=== PATIENT | male | born 1950 | race Caucasian/White ===

== ENCOUNTER 2022-07-19 12:11 | Inpatient (IN) | payer MEDICARE, OTHER ==
[2022-07-19] MEDS ORDERED: ASPIRIN 81 MG PO STA (12:15)
[2022-07-19] MEDS ORDERED: ATORVASTATIN 80 MG TAB PO STA (12:18)
--- NOTE | 2022-07-19 12:19 | ED ---
General Adult HPI - General Stated complaint: Stemi Time Seen by Provider: 07/19/22 12:14 Source: patient, EMS, RN notes reviewed Mode of arrival: EMS Limitations: no limitations - History of Present Illness Initial comments: Patient is a pleasant 72-year-old male presenting to the emergency department with concerns with syncopal episode. Patient became unresponsive. Patient admits to having some belching earlier. Patient feels sweaty at this time. EMS has concern for ST elevation on EKG. Patient denies chest discomfort. No critical history. No history of similar symptoms previously. No vomiting. No dyspnea. Review of Systems ROS Statement: Those systems with pertinent positive or pertinent negative responses have been documented in the HPI. ROS Other: All systems not noted in ROS Statement are negative. Constitutional: Denies: fever Eyes: Denies: eye pain ENT: Denies: ear pain Respiratory: Denies: cough, dyspnea Cardiovascular: Denies: chest pain Endocrine: Denies: fatigue Gastrointestinal: Denies: abdominal pain Genitourinary: Denies: dysuria Musculoskeletal: Denies: back pain Skin: Denies: rash Neurological: Denies: weakness General Exam Limitations: no limitations General appearance: alert, in no apparent distress Head exam: Present: normocephalic Eye exam: Present: normal appearance, PERRL, EOMI ENT exam: Present: normal oropharynx Neck exam: Present: normal inspection Respiratory exam: Present: normal lung sounds bilaterally. Absent: chest wall tenderness Cardiovascular Exam: Present: regular rate, normal rhythm Expanded Peripheral pulses: 2+: Radial (R), Radial (L), Posterior Tibialis (R), Posterior Tibialis (L) GI/Abdominal exam: Present: soft. Absent: tenderness Extremities exam: Present: normal inspection. Absent: pedal edema, calf tenderness Neurological exam: Present: alert, oriented X3, CN II-XII intact. Absent: motor sensory deficit Expanded Neurological exam: Present: protecting the airway Patient oriented to: Present: person, place, time Speech: Present: fluid speech Cranial nerves: EOM's Intact: Normal Sensory exam: Upper Extremity Light Touch: Normal, Lower Extremity Light Touch: Normal Motor strength exam: RUE: 5, LUE: 5, RLE: 5, LLE: 5 Eye Response: (4) open spontaneously Motor Response: (6) obeys commands Verbal Response: (5) oriented Psychiatric exam: Present: normal affect, normal mood Skin exam: Present: normal color Course Vital Signs 07/19/22 12:13 Temperature 97.9 F Pulse Rate 93 Respiratory 20 Rate Blood Pressure 114/84 O2 Sat by Pulse 98 Oximetry - Reevaluation(s) Reevaluation #1: 07/19/22 12:17 Cardiology was contacted prior to patient arrival and has arrived and is evaluating the patient. 07/19/22 12:24 EKG by EMS shows inferior ST elevation with reciprocal changes anterior. EKG done apartment was taken by Dr. Alba. Medical Decision Making - Medical Decision Making Patient is going to the Technical Advisor. Admitting hospital physician has been paged. Case was discussed with Dr. oro, who will admit. Disposition Clinical Impression: Syncope, STEMI (ST elevation myocardial infarction) Disposition: ADMITTED IP TO THIS HOSP Is patient prescribed a controlled substance at d/c from ED?: No Referrals: None,Stated [REFERRING] - 1-2 days Time of Disposition: 12:21
[2022-07-19] MEDS ORDERED: HEPARIN SODIUM 1,000 UN/ML (10ML VL) IVP ONE (12:20)
[2022-07-19] MEDS ORDERED: NITROGLYCERIN SL TABS 0.4 MG TAB SUBLINGUAL PRN ×2 (12:22→14:44)
[2022-07-19] MEDS ORDERED: HEPARIN SODIUM 1,000 UN/ML (10ML VL) ONE (12:34)
[2022-07-19] MEDS ORDERED: fentaNYL (PF) 50 MCG/ML 2 ML AMP ONE (12:34)
[2022-07-19] MEDS ORDERED: LIDOCAINE 1% INJ 10MG/ML (30 ML VIAL-PF) SQ ONE (12:35)
[2022-07-19] MEDS ORDERED: fentaNYL (PF) 50 MCG/ML 2 ML AMP IV ONE (12:35)
[2022-07-19] MEDS ORDERED: IV FLUID CONTINUATION 1,000 ML IV ONE (12:35)
--- NOTE | 2022-07-19 12:36 | P.CRDCN ---
History of Present Illness History of present illness: HISTORY OF PRESENTING ILLNESS This is a pleasant 72-year-old male past medical history significant for chronic nicotine dependence, hypertension. He does not follow with a script editor.. We have been asked to see in consultation for STEMI. Patient presents to the ER via EMS after a syncopal episode. Patient was sitting down with family and had acute onset of syncope and had brief episode of loss of consciousness. EMS was called. Patient was diaphoretic. EKG was preformed and patient with ST elevations noted on inferior leads. Patient is seen and examined in the emergency department, he is alert, oriented x 3. Vital signs are stable. He denies any chest pain or shortness of breath. He denies any history of CAD, NH, Stroke or diabetes. He does have a history of hypertension and take amlodipine. EKG revealed sinus rhythm with ST elevation noted in inferior leads. Patient given 325mg aspirin. 80mg atorvastatin and 5,000units of IV heparin ordered. REVIEW OF SYSTEMS At the time of my exam: CONSTITUTIONAL: Denies fever or chills. CARDIOVASCULAR: +syncopal episode Denies chest pain, shortness of breath, orthopnea, PND or palpitations. RESPIRATORY: Denies cough. GASTROINTESTINAL: Denies abdominal pain, diarrhea, constipation, nausea or vomiting. MUSCULOSKELETAL: Denies myalgias. NEUROLOGIC: Denies numbness, tingling, headacbe or weakness. ENDOCRINE: Denies fatigue, weight change, polydipsia or polyurina. GENITOURINARY: Denies burning, hematuria or urgency with micturation. HEMATOLOGIC: Denies history of anemia or bleeding. PHYSICAL EXAMINATION Blood pressure 114/84, heart rate 93, afebrile, oxygen saturation is 98% on 2 L nasal cannula CONSTITUTIONAL: No apparent distress. HEENT: Head is normocephalic. Sclerae anicteric. Mucous membranes of the mouth are moist. No JVD. CHEST EXAMINATION: Lungs are clear to auscultation. HEART EXAMINATION: Regular rate and rhythm. S1, S2 heard. ABDOMEN: Soft, nontender. EXTREMITIES: no lower extremity edema and no calf tenderness. NEUROLOGIC EXAMINATION: Patient is awake, alert and oriented x3. ASSESSMENT Inferior STEMI Syncopal episode Chronic tobacco use History of Hypertension PLAN Patient taken to the blood bank laboratory technician for immediate cardiac catheterization Will obtain 2D echocardiogram and doppler study to assess cardiac structure and function. Troponin, CBC, BMP labs pending Monitor renal function Further recommendations based on above findings and clinical course. Nurse practitioner note has been reviewed by physician. Signing provider agrees with the documented findings, assessment, and plan of care. Past Medical History Past Medical History: Unable to Obtain Past Surgical History: Unable to Obtain Smoking Status: Never smoker Past Alcohol Use History: Unable to Obtain Past Drug Use History: Unable to Obtain Physical Exam Vitals: Vital Signs Temp Pulse Resp BP Pulse Ox 07/19/22 12:13 97.9 F 93 20 114/84 98 Intake and Output 07/18/22 07/19/22 07/19/22 22:59 06:59 14:59 Other: Weight 72.575 kg Results Current Medications Generic Name Dose Route Start Last Admin Trade Name Freq PRN Reason Stop Dose Admin Aspirin 325 mg 07/20/22 09:00 Aspirin 325 Mg Tab PO DAILY TRACY Nitroglycerin 0.4 mg 07/19/22 12:22 Nitroglycerin Sl Tabs 0.4 Mg Tab SUBLINGUAL Q5M PRN Chest Pain Intake and Output 07/18/22 07/19/22 07/19/22 22:59 06:59 14:59 Other: Weight 72.575 kg Patient Weight 07/20/22 06:59 Weight 72.575 kg
[2022-07-19] MEDS ORDERED: VERAPAMIL SYRINGE (5 MG/10 ML) INTRAARTER ONE (12:38)
[2022-07-19] MEDS ORDERED: TICAGRELOR 90 MG TAB ONE (12:42)
[2022-07-19] MEDS ORDERED: TICAGRELOR 90 MG TAB PO ONE (12:43)
[2022-07-19] MEDS: HEPARIN SODIUM 1,000 UN/ML (10ML VL) IV ONE ×4 (12:43→14:12)
[2022-07-19] MEDS: MIDAZOLAM 2 MG/2 ML VIAL IV ONE ×2 (12:45→12:52)
[2022-07-19] MEDS ORDERED: SODIUM CHLORIDE 0.9% 1,000 ML IV ONE (13:33)
[2022-07-19] MEDS ORDERED: IOPAMIDOL-370 125ML BTL INJ ONE (13:33)
[2022-07-19] MEDS ORDERED: TIROFIBAN 12.5MG-250ML NS 250 ML IV ONE (14:00)
[2022-07-19] MEDS ORDERED: IOPAMIDOL-370 100ML BTL INJ ONE ×2 (14:14→14:37)
[2022-07-19] MEDS ORDERED: ATROPINE SULFATE 0.1 MG/ML 10ML SYRINGE IV PRN (14:44)
[2022-07-19] MEDS ORDERED: MAG HYDROX/AL HYDROX/SIMETH 30 ML CUP PO PRN (14:44)
[2022-07-19] MEDS ORDERED: RX INFO: IV CONTRAST WAS GIVEN 1 EACH MISC MISCELLANE PRN (14:44)
[2022-07-19] MEDS ORDERED: ZOLPIDEM 5 MG TAB PO PRN (14:44)
[2022-07-19] MEDS ORDERED: SODIUM CHLORIDE 0.9% 1,000 ML in EMPTY BAG 1 BAG IV SCH (14:45)
[2022-07-19 14:46] LABS: Basophils # (A) 0.1 k/uL (0-0.2); Basophils % (A) 0 %; Eosinophils # (A) 0.1 k/uL (0-0.7); Eosinophils % (A) 1 %; HCT 41.9 % (39.0-53.0); HGB 14.5 gm/dL (13.0-17.5); Lymphocytes # (A) 1.2 k/uL (1.0-4.8); Lymphocytes % (A) 9 %; MCH 33.2 pg (25.0-35.0); MCHC 34.5 g/dL (31.0-37.0); MCV 96.2 fL (80.0-100.0); Mean Platelet Volume 6.7; Monocytes # (A) 0.4 k/uL (0-1.0); Monocytes % (A) 3 %; Neutrophils # (A) 12.6 k/uL (1.3-7.7); Neutrophils % (A) 87 %; Platelet Count 341 k/uL (150-450); RBC 4.36 m/uL (4.30-5.90); RDW 13.4 % (11.5-15.5); WBC 14.5 k/uL (3.8-10.6)
[2022-07-19] MEDS ORDERED: TIROFIBAN 12.5MG-250ML NS 250 ML IV SCH (15:00)
[2022-07-19 15:17] LABS: Glucose,Whole Blood 145 mg/dL (70-110)
[2022-07-19 15:27] LABS: INR 1.1 (<1.2); Prothrombin Time 11.9 sec (9.0-12.0)
[2022-07-19 15:34] LABS: Partial Thromboplastin Time >200.0 sec (22.0-30.0)
[2022-07-19] MEDS ORDERED: LORazepam 1 MG/0.5 ML VIAL IV STA (16:18)
[2022-07-19] MEDS ORDERED: THIAMINE 100 MG/ML 2 ML VIAL IM STA (16:20)
[2022-07-19] MEDS ORDERED: LORazepam 1 MG/0.5 ML VIAL IV PRN ×3 (16:20)
[2022-07-19 16:22] LABS: Basophils % (A) 0 %; Eosinophils % (A) 0 %; HCT 46.5 % (39.0-53.0); HGB 15.3 gm/dL (13.0-17.5); Lymphocytes # (A) 1.2 k/uL (1.0-4.8); Lymphocytes % (A) 10 %; MCH 32.3 pg (25.0-35.0); MCHC 32.9 g/dL (31.0-37.0); MCV 98.1 fL (80.0-100.0); Monocytes # (A) 0.3 k/uL (0-1.0); Monocytes % (A) 2 %; Neutrophils # (A) 10.6 k/uL (1.3-7.7); Neutrophils % (A) 87 %; Platelet Count 380 k/uL (150-450); RBC 4.74 m/uL (4.30-5.90); RDW 13.4 % (11.5-15.5); WBC 12.2 k/uL (3.8-10.6)
[2022-07-19 16:31] LABS: ALT 11 U/L (4-49); AST 21 U/L (17-59); African American GFR (CKD) >90 (>60 ml/min/1.73 sqM); Albumin 3.7 g/dL (3.5-5.0); Alkaline Phosphatase 89 U/L (38-126); Anion Gap 11 mmol/L; Blood Urea Nitrogen 10 mg/dL (9-20); Calcium 8.2 mg/dL (8.4-10.2); Carbon Dioxide 21 mmol/L (22-30); Chloride 96 mmol/L (98-107); Glucose 115 mg/dL (74-99); Magnesium 1.8 mg/dL (1.6-2.3); Non-African American GFR(CKD) >90 (>60 ml/min/1.73 sqM); Potassium 3.7 mmol/L (3.5-5.1); Sodium 128 mmol/L (137-145); Total Bilirubin 0.5 mg/dL (0.2-1.3); Total Protein 6.3 g/dL (6.3-8.2)
[2022-07-19] MEDS: NICOTINE 21MG/24HR PATCH TRANSDERM SCH (16:45)
--- NOTE | 2022-07-19 18:01 | P.CARDCATH ---
Date of Procedure: 07/19/22 Description of Procedure: Cardiac Catheterization: The patient is a 72-year-old male with a known history of hypertension, chronic tobacco use and a family history of premature CAD who presented with an acute inferior wall myocardial infarction, he was evaluated by Dr. Alba. Recommendations were made regarding cardiac catheterization, the risks and the complications were discussed with the patient who is in full understanding and agreement. Procedure Description: Patient was brought to labor mediator in fasting semi-sedated state after receiving Fentanyl and Benadryl achieiving moderate conscious sedated state. Using Xylocaine Anesthesia and Seldinger technique, a 6-Martiniquais sheath was introduced in the right radial artery . Subsequently, selective right coronary angiography was performed using a 6- Martiniquais 4 bend Krystyna guiding catheter. Because of poor backup and the inability to advance the wire through the acute occlusion of the mid distal RCA, the guiding catheter was removed and a 6-Martiniquais 0.75 AL guiding catheter was introduced. Subsequently a 0.014 BMW J wire with a fine cross microcatheter were introduced into system and the wire was positioned in the distal vessel. A 2.5 x 12 mm Treck was advanced and inflation at 8 ashley were done not cross the total occlusion at that time the balloon was removed and a 1.5X8 mm mini Treck was advanced and multiple inflation at a maximum of 10 ashley were done. After removing the balloon a 2.5 x 12 mm NC Treck was advanced and multiple inflation in the mid and distal segment at a maximum of 10 ashley were done. After removing the 6-Martiniquais guide liner was advanced and a 2.5 x 23 mm Xience raisa point stent was deployed at 16 ashley, after removing the balloon another 2.5 at 23 mm Xience raisa point stent was deployed proximal to the first one and dilated at 16 ashley. Following that a 2.75 x 15 mm NC Treck balloon was advanced and multiple inflation at a maximum of 12 ashley were done in the stents. Subsequently a 3.0 x 15 mm Xience raisa point proximally and dilated at 16 ashley and another 3.0 x 8 mm raisa point stent was positioned proximal to the first one right after the ostium and dilated at 16 ashley. After appropriate wait the wire was withdrawn back and catheter at evidence of haziness in the mid segment was noted. The wire was reintroduced and a 2.0 x 12 mm Mini Treck was advanced and inflations were done at 10 ashley subsequently 3.0 x 12 and a 3.0 x 8 mm NC Treck were advanced and inflation in the distal and mid stent were done at 12 ashley. After removing the balloon a 3.0 x 8 mm Xience raisa point stent was positioned in the overlapped segment and dilated at 16 ashley after removing the balloon and appropriate wait the wire was removed and images were obtained that revealed stable successful stenting. At that time a 3.5, 5 bend diagnostic Krystyna catheter was advanced and images of the left system were performed. Multiple views of the coronary artery including hemiaxial views were obtained. The right Krystyna guiding catheter catheter was used to cross the aortic valve and LVEDP was calculated. Following that, catheter and sheath were removed. Hemostasis was obtained with deployment of TR band . There was no immediate complication. Patient was returned to room in stable condition. Of note, the patient received a total of 9500 units of intravenous heparin as well as intra-arterial verapamil. He received a loading dose of oral Brilinta and was started on Aggrastat at the end of the procedure. His chest discomfort and EKG changes resolved at the time of recanalization of the vessel. There was no immediate complications. Findings: Fluoroscopy there is severe calcification involving the RCA. Left main: This is a short sized vessel, bifurcating into LAD and left circumflex, left main has no high-grade stenosis LAD: This is a large size vessel, reaching to the apex, giving rise to a large diagonal branch. The diagonal branch has 30-40% plaque the rest of the vessel has no high-grade stenosis Left circumflex: This is a nondominant vessel, giving rise to a large obtuse marginal branch that has no evidence of high-grade stenosis RCA: In this vessel is heavily calcified has a 50% plaque proximally the midsegment is diffusely diseased, the distal segment is totally occluded with no significant antegrade flow Left Ventriculogram: Not performed Hemodynamics: There was no gradient across the aortic valve, LVEDP was 12-16 mmHg Conclusion: 1. Heavily calcified RCA with total occlusion of the mid segment 2. Mild disease in the first diagonal branch 3. Successful stenting of the proximal and distal RCA with reduction of the stenosis in the distal segment from 100 % to 0% with mild haziness, suggestive of intracoronary thrombus Recommendations: I have recommended to continue on aspirin and Brilinta for at least one year in addition to aggressive coronary risks modifications. He will be continued on Aggrastat for 12 hours. The findings and the recommendations were discussed with the patient and the family and they were in full understanding and agreement. Duration of sedation is 124 minutes.
[2022-07-19] MEDS: MULTIVITAMINS, THERA 1 EACH TAB PO SCH (18:27)
[2022-07-19] MEDS: TICAGRELOR 90 MG TAB PO SCH (20:56)
[2022-07-19] MEDS: METOPROLOL TARTRATE 25 MG TAB PO SCH (20:56)
[2022-07-19] MEDS: ATORVASTATIN 80 MG TAB PO SCH (20:56)
[2022-07-20 01:03] LABS: Chol/HDL Ratio 2.63 Ratio; LDL Cholesterol,Calculated 99.2 mg/dL (0.0-131.0); VLDL Calculation 11.24 mg/dL (5.00-40.00)
--- NOTE | 2022-07-20 02:48 | HP ---
HISTORY AND PHYSICAL CHIEF COMPLAINT: Syncope and inferior wall myocardial infarction. HISTORY OF PRESENT ILLNESS: A 72-year-old gentleman with a past medical history of no significant medical issues, was admitted with syncope. The patient was noted to have inferior wall myocardial infarction. The patient had cardiac catheterization and stenting. Also, the patient wanted to leave the hospital at this time. The patient has a history of EtOH also. There is no history of fever, rigors, or chills. PAST MEDICAL HISTORY: No history of any cardiac, or respiratory illnesses. MEDICATIONS: Norvasc. ALLERGIES: None. FAMILY HISTORY: No history of heart disease or strokes in the family. SOCIAL HISTORY: History of smoking. History of alcohol. REVIEW OF SYSTEMS: A 14-point review of systems is negative except as mentioned earlier. PHYSICAL EXAMINATION: VITAL SIGNS: Pulse is 70, blood pressure 130/72, respirations 17. HEENT: Conjunctivae normal. NECK: No JVD. CARDIOVASCULAR: S1, S2 muffled. RESPIRATION: Breath sounds diminished at the bases. A few scattered rhonchi and crackles. ABDOMEN: Soft, nontender. LEGS: No edema. NERVOUS SYSTEM: No focal deficits. SKIN: No ulcer, rash, bleeding. JOINTS: No active deforming arthropathy. LABS: Reviewed. WBC 12.3. EKG reviewed personally. ASSESSMENT: 1. Acute inferior myocardial wall infarction, status post cardiac catheterization and stenting. 2. ETOH. 3. History of nicotine dependence. 4. Hyponatremia. 5. Increased WBC. 6. Hypertension. RECOMMENDATIONS AND DISCUSSION: This is a 72-year-old gentleman, who presented with multiple complex medical issues. We will monitor the patient closely. Dual antiplatelet and beta blockers. We will continue to monitor. Monitor blood pressure closely. CIWA protocol. Habitrol patch. Have Ativan p.r.n. Prognosis guarded because of multiple complex medical issues. Discussed with the family at length and the patient at length for the need to stay in the hospital. The patient is being monitored in ICU. Discussed with staff. Further recommendations to follow. See orders for further details. MMODL / IJN: [id number] /
[2022-07-20] MEDS: THIAMINE 100 MG TAB PO SCH ×2 (06:32→18:32)
[2022-07-20 07:27] LABS: Basophils # (A) 0.1 k/uL (0-0.2); Basophils % (A) 1 %; Eosinophils # (A) 0.2 k/uL (0-0.7); Eosinophils % (A) 2 %; HCT 42.4 % (39.0-53.0); HGB 13.9 gm/dL (13.0-17.5); Lymphocytes # (A) 1.6 k/uL (1.0-4.8); Lymphocytes % (A) 13 %; MCH 32.1 pg (25.0-35.0); MCHC 32.7 g/dL (31.0-37.0); MCV 98.2 fL (80.0-100.0); Mean Platelet Volume 7.3; Monocytes # (A) 0.8 k/uL (0-1.0); Monocytes % (A) 6 %; Neutrophils # (A) 9.5 k/uL (1.3-7.7); Neutrophils % (A) 77 %; Platelet Count 344 k/uL (150-450); RBC 4.32 m/uL (4.30-5.90); RDW 13.1 % (11.5-15.5); WBC 12.3 k/uL (3.8-10.6)
[2022-07-20 07:41] LABS: African American GFR (CKD) >90 (>60 ml/min/1.73 sqM); Anion Gap 10 mmol/L; Blood Urea Nitrogen 5 mg/dL (9-20); Calcium 8.5 mg/dL (8.4-10.2); Carbon Dioxide 22 mmol/L (22-30); Chloride 98 mmol/L (98-107); Glucose 95 mg/dL (74-99); Non-African American GFR(CKD) >90 (>60 ml/min/1.73 sqM); Potassium 3.8 mmol/L (3.5-5.1); Sodium 130 mmol/L (137-145)
[2022-07-20] MEDS ORDERED: ASPIRIN 325 MG TAB PO SCH (09:00)
[2022-07-20] MEDS: TICAGRELOR 90 MG TAB PO SCH ×2 (09:14→21:05)
[2022-07-20] MEDS: ASPIRIN 81 MG PO SCH (09:14)
[2022-07-20] MEDS: MULTIVITAMINS, THERA 1 EACH TAB PO SCH (09:15)
[2022-07-20] MEDS: NICOTINE 21MG/24HR PATCH TRANSDERM SCH (09:16)
[2022-07-20] MEDS: METOPROLOL TARTRATE 25 MG TAB PO SCH (09:16)
--- NOTE | 2022-07-20 09:29 | P.PN ---
Subjective Progress Note Date: 07/20/22 The patient is a 72-year-old male with past medical history of hypertension, who presented to the hospital after experiencing an acute onset of feeling unwell. The patient states he felt generalized acute onset of malaise with nausea and lightheadedness. Initial EKG showed inferior wall ST elevation. He subsequently went to the pathology laboratory aide, where Dr. Melo found a heavily calcified RCA with total occlusion in the mid segment. 3 stents were placed. The patient was also found to have 30-40% in the diagonal branch of the LAD. Left circumflex was free of disease. The patient was interviewed and examined lying comfortably in bed. He states he did well overnight. No chest pain or chest pressure. No difficulty breathing. He is yet to get up and ambulate around the unit. GENERAL: Well-appearing, well-nourished and in no acute distress. NECK: Supple without JVD or thyromegaly. LUNGS: Breath sounds clear to auscultation bilaterally. Respiration equal and unlabored. No wheezes, rales or rhonchi. HEART: Regular rate and rhythm without murmurs, rubs or gallops. S1 and S2 heard. EXTREMITIES: Normal range of motion, no edema. No clubbing or cyanosis. Peripheral pulses intact. Right radial site is +2 pulse VITALS: Blood pressure 131/80, pulse 75, respiratory rate 16, SpO2 95% on 2 L nasal cannula TELEMETRY: Sinus rhythm overnight LABS: WBC 12.3, hemoglobin 13.9, hematocrit 42.4, platelet 344, sodium 1:30, potassium 3.8, BUN 5, creatinine 0.50, triglycerides 56, LDL 99, HDL 67 IMPRESSION: Inferior wall ST elevated myocardial infarction Status post stenting of the RCA Current smoker History of hypertension PLAN: Awaiting echocardiogram results Continue dual antiplatelet therapy and beta ehsan Start low-dose losartan for hypertension Further recommendations to be based on clinical course I am dictating on behalf of Dr Paulie Alba's history/physical and assessment/plan. Objective - Vital Signs Vital signs: Vital Signs Temp 98.0 F 07/20/22 04:00 Pulse 75 07/20/22 09:00 Resp 30 H 07/20/22 09:00 BP 131/80 07/20/22 09:00 Pulse Ox 95 07/20/22 09:00 FiO2 2 07/19/22 23:30 Intake & Output 07/19/22 07/20/22 07/20/22 18:59 06:59 18:59 Intake Total 2042 916 219 Output Total 750 3075 450 Balance 1292 -2159 -231 Weight 72.575 kg 67.5 kg Intake: IV 1450 903 219 Sodium Chloride 0.9% 1, 400 903 219 000 ml In Empty Bag 1 bag @ 1 ML/KG/HR 72.575 mls/ hr IV .[id number] TRACY Rx#: [id number] Intake, IV Titration 52 13 Amount Tirofiban 12.5MG-250Ml Ns 52 13 250 ml @ 0.15 MCG/KG/MIN 13.064 mls/hr IV .[id number] TRACY Rx#:[id number] Oral 540 Output: Urine 750 3075 450 Other: Voiding Method Urinal - Labs CBC & Chem 7: 07/20/22 06:27 07/20/22 06:27 Labs: Abnormal Lab Results - Last 24 Hours (Table) 07/19/22 07/19/22 07/19/22 Range/Units 14:30 14:30 14:30 WBC 14.5 H (3.8-10.6) k/uL Neutrophils # 12.6 H (1.3-7.7) k/uL APTT >200.0 H* (22.0-30.0) sec Sodium 128 L (137-145) mmol/L Chloride 96 L (98-107) mmol/L Carbon Dioxide 21 L (22-30) mmol/L BUN (9-20) mg/dL Creatinine 0.56 L (0.66-1.25) mg/dL Glucose 115 H (74-99) mg/dL POC Glucose (mg/dL) (70-110) mg/dL Calcium 8.2 L (8.4-10.2) mg/dL Troponin I (0.000-0.034) ng/mL HDL Cholesterol (40.00-60.00) mg/dL 07/19/22 07/19/22 07/19/22 Range/Units 14:30 15:15 15:34 WBC (3.8-10.6) k/uL Neutrophils # (1.3-7.7) k/uL APTT (22.0-30.0) sec Sodium (137-145) mmol/L Chloride (98-107) mmol/L Carbon Dioxide (22-30) mmol/L BUN (9-20) mg/dL Creatinine (0.66-1.25) mg/dL Glucose (74-99) mg/dL POC Glucose (mg/dL) 145 H (70-110) mg/dL Calcium (8.4-10.2) mg/dL Troponin I 0.141 H* 0.404 H* (0.000-0.034) ng/mL HDL Cholesterol (40.00-60.00) mg/dL 07/19/22 07/19/22 07/19/22 Range/Units 15:34 15:34 15:34 WBC 12.2 H (3.8-10.6) k/uL Neutrophils # 10.6 H (1.3-7.7) k/uL APTT 151.3 H* (22.0-30.0) sec Sodium (137-145) mmol/L Chloride (98-107) mmol/L Carbon Dioxide (22-30) mmol/L BUN (9-20) mg/dL Creatinine (0.66-1.25) mg/dL Glucose (74-99) mg/dL POC Glucose (mg/dL) (70-110) mg/dL Calcium (8.4-10.2) mg/dL Troponin I (0.000-0.034) ng/mL HDL Cholesterol 67.60 H (40.00-60.00) mg/dL 07/19/22 07/20/22 07/20/22 Range/Units 20:48 02:06 06:27 WBC (3.8-10.6) k/uL Neutrophils # (1.3-7.7) k/uL APTT (22.0-30.0) sec Sodium (137-145) mmol/L Chloride (98-107) mmol/L Carbon Dioxide (22-30) mmol/L BUN (9-20) mg/dL Creatinine (0.66-1.25) mg/dL Glucose (74-99) mg/dL POC Glucose (mg/dL) (70-110) mg/dL Calcium (8.4-10.2) mg/dL Troponin I 1.780 H* 1.700 H* 1.310 H* (0.000-0.034) ng/mL HDL Cholesterol (40.00-60.00) mg/dL 07/20/22 07/20/22 Range/Units 06:27 06:27 WBC 12.3 H (3.8-10.6) k/uL Neutrophils # 9.5 H (1.3-7.7) k/uL APTT (22.0-30.0) sec Sodium 130 L (137-145) mmol/L Chloride (98-107) mmol/L Carbon Dioxide (22-30) mmol/L BUN 5 L (9-20) mg/dL Creatinine 0.50 L (0.66-1.25) mg/dL Glucose (74-99) mg/dL POC Glucose (mg/dL) (70-110) mg/dL Calcium (8.4-10.2) mg/dL Troponin I (0.000-0.034) ng/mL HDL Cholesterol (40.00-60.00) mg/dL
[2022-07-20] MEDS ORDERED: Magnesium Replacement Protocol 1 EACH MISC MISCELLANE PRN (09:32)
[2022-07-20] MEDS ORDERED: POTASSIUM CHLORIDE ER 20 MEQ TAB.ER PO SCH (10:00)
[2022-07-20 10:23] VITALS: BMI 23.3
[2022-07-20] MEDS: MAGNESIUM SULFATE-D5W PMX 1 GM in DEXTROSE/WATER 1 100ML.BAG IVPB SCH ×2 (10:48→12:19)
[2022-07-20 11:36] LABS: Chol/HDL Ratio 2.65 Ratio; VLDL Calculation 16.34 mg/dL (5.00-40.00)
--- NOTE | 2022-07-20 13:20 | CA ---
Transthoracic Echo Report Name: Seth Dias Age: 72 Gender: M : 1950 Exam Date: 07/20/2022 08:04 Exam Location: [place] [facility] Ht (in): 67 Wt (lb): 160 Ordering Physician: Rubén Melo MD ([id number]) Attending/Referring Phys: Software Licensing Executive Kecia Anna RDCS Procedure CPT: Indications: SD Cardiac Hx: cath with 5 stents on 07/19 Technical Quality: Good Contrast 1: Total Dose (mL): Contrast 2: Total Dose (mL): MEASUREMENTS (Male / Female) Normal Values 2D ECHO LV Diastolic Diameter PLAX 4.3 cm 4.2 - 5.9 / 3.9 - 5.3 cm LV Systolic Diameter PLAX 3.0 cm IVS Diastolic Thickness 0.8 cm 0.6 - 1.0 / 0.6 - 0.9 cm LVPW Diastolic Thickness 0.7 cm 0.6 - 1.0 / 0.6 - 0.9 cm LV Relative Wall Thickness 0.4 RV Internal Dim ED PLAX 2.4 cm LV Diastolic Volume MOD BP 62.4 cm??? 67 - 155 / 56 - 104 cm??? LV Systolic Volume MOD BP 29.3 cm??? 22 - 58 / 19 - 49 cm??? LV Ejection Fraction MOD BP 53.1 % >= 55 % LV Diastolic Volume MOD 4C 64.8 cm??? LV Systolic Volume MOD 4C 20.4 cm??? LV Ejection Fraction MOD 4C 68.6 % LV Diastolic Length 4C 7.5 cm LV Systolic Length 4C 6.4 cm LV Diastolic Volume MOD 2C 58.2 cm??? LV Systolic Volume MOD 2C 39.3 cm??? LV Ejection Fraction MOD 2C 32.5 % LV Diastolic Length 2C 7.0 cm LV Systolic Length 2C 6.9 cm LA Volume 36.8 cm??? 18 - 58 / 22 - 52 cm??? M-MODE Aortic Root Diameter MM 3.0 cm LA Systolic Diameter MM 1.8 cm LA Ao Ratio MM 0.6 MV E Point Septal Separation 1.2 cm AV Cusp Separation MM 1.8 cm DOPPLER AV Peak Velocity 118.0 cm/s AV Peak Gradient 5.6 mmHg MV Area PHT 3.2 cm??? MR Peak Velocity 44.3 cm/s MR Peak Gradient 0.8 mmHg Mitral E Point Velocity 43.8 cm/s Mitral A Point Velocity 78.8 cm/s Mitral E to A Ratio 0.6 MV Deceleration Time 238.8 ms MV E' Velocity 6.2 cm/s Mitral E to MV E' Ratio 7.1 TR Peak Velocity 172.7 cm/s TR Peak Gradient 11.9 mmHg Right Ventricular Systolic Press 15.9 mmHg FINDINGS Left Ventricle Mildly decreased left ventricular ejection fraction. Grade 1 diastolic dysfunction. Basal inferolateral is slightly hypokinetic. Left ventricular cavity size normal. Left ventricular ejection fraction is estimated at 50 %. Right Ventricle The right ventricle is normal in size and function. Right Atrium The right atrium is normal in size. Left Atrium The left atrium is normal in size. Mitral Valve Structurally normal mitral valve without significant stenosis or prolapse. There is mild mitral regurgitation. Aortic Valve Structurally normal aortic valve without significant sclerosis or stenosis. There is no aortic regurgitation. Focal thickening of the aortic valve cusps. Tricuspid Valve Structurally normal tricuspid valve without significant stenosis. Pulmonary artery systolic pressure is normal. Mild tricuspid regurgitation. Pulmonic Valve Structurally normal pulmonic valve without significant stenosis. There is no pulmonic regurgitation. Pericardium Normal pericardium without effusion. Aorta Normal aortic root dimension. CONCLUSIONS Left ventricular EF 50% Inferior lateral hypokinesis Mild mitral regurgitation Mild tricuspid regurgitation RVSP 16 Previewed by: Dr. Sanjeev Springer DO (Electronically Signed) Final Date: 20 July 2022 13:20
--- NOTE | 2022-07-20 15:16 | P.PN ---
Subjective Progress Note Date: 07/20/22 This is a 72-year-old male who was recently admitted with syncope and being closely monitored. Patient was also noted to have an inferior myocardial infarction STEMI and was sent to the Director Of [facility] for cardiac catheterization with successful stenting to the RCA with total occlusion and 3 stents were placed. Patient is currently in the ICU awaiting transfer to the selective unit with continued telemetry monitoring. Patient was and also known history of chronic EtOH use and is maintained on CIWA protocol. Patient also with continued ongoing nicotine abuse with no significant past medical history other than hypertension. Patient is currently afebrile with no acute overnight issues noted overnight. Patient denies further chest pain or shortness of breath. Patient denies nausea or vomiting and is tolerating diet. Sodium level slightly improved at 130 today and magnesium is 1.8. Patient is continued on 2 L via nasal cannula and recommend to wean FiO2 as tolerated. Review of systems: Constitutional: No reports of fatigue, fever, or chills Cardiovascular: No reports of chest pain or palpitations Respiratory: No reports of shortness of breath or cough GI: No reports of nausea, no reports of of vomiting, no reports of diarrhea : No reports of dysuria or retention Neurovascular: No reports of generalized weakness All medications have been reviewed Active Medications Al Hydroxide/Mg Hydroxide (Mag Hydrox/Al Hydrox/Simeth 30 Ml Cup) 30 ml PO Q4HR PRN PRN Reason: Heartburn Aspirin (Aspirin 81 Mg) 81 mg PO DAILY [facility] Last Admin: 07/20/22 09:14 Dose: 81 mg Atorvastatin Calcium (Atorvastatin 80 Mg Tab) 80 mg PO HS [facility] Last Admin: 07/19/22 20:56 Dose: 80 mg Atropine Sulfate (Atropine Sulfate 0.1 Mg/Ml 10ml Syringe) 0.5 mg IV ONCE PRN PRN Reason: Symptomatic Bradycardia Lorazepam (Lorazepam 1 Mg/0.5 Ml Vial) 1 mg IV Q2HR PRN PRN Reason: CIWA 8 or 9 Lorazepam (Lorazepam 1 Mg/0.5 Ml Vial) 1 mg IV Q1HR PRN PRN Reason: CIWA 10 to 15 Lorazepam (Lorazepam 1 Mg/0.5 Ml Vial) 2 mg IV Q10M PRN PRN Reason: CIWA 16 or higher Stop: 07/21/22 16:20 Losartan Potassium (Losartan 25 Mg Tab) 25 mg PO [facility] Metoprolol Tartrate (Metoprolol Tartrate 50 Mg Tab) 50 mg PO BID [facility] Miscellaneous Information (Rx Info: Iv Contrast Was Given 1 Each Misc) 1 each MISCELLANE DAILY PRN PRN Reason: Per Protocol Stop: 07/21/22 14:44 Miscellaneous Information (Magnesium Replacement Protocol 1 Each Misc) 1 each MISCELLANE DAILY PRN; Protocol PRN Reason: Per Protocol Multivitamins (Multivitamins, Thera 1 Each Tab) 1 each PO DAILY [facility] Last Admin: 07/20/22 09:15 Dose: 1 each Nicotine (Nicotine 21mg/24hr Patch) 1 patch TRANSDERM DAILY [facility] Last Admin: 07/20/22 09:16 Dose: 1 patch Nitroglycerin (Nitroglycerin Sl Tabs 0.4 Mg Tab) 0.4 mg SUBLINGUAL Q5M PRN PRN Reason: Chest Pain Thiamine HCl (Thiamine 100 Mg Tab) 100 mg PO BID-W/MEALS [facility] Last Admin: 07/20/22 06:32 Dose: 100 mg Ticagrelor (Ticagrelor 90 Mg Tab) 90 mg PO BID [facility]; Protocol Last Admin: 07/20/22 09:14 Dose: 90 mg Zolpidem Tartrate (Zolpidem 5 Mg Tab) 5 mg PO HS PRN PRN Reason: Insomnia PHYSICAL EXAMINATION: GENERAL: The patient is alert and oriented, thin built, elderly male HEENT: Pupils are round and equally reacting to light. EOMI. no scleral icterus. No conjunctival pallor. Normocephalic, atraumatic. No pharyngeal erythema. No thyromegaly. CARDIOVASCULAR: S1 and S2 muffled PULMONARY: diminished breath sounds bilaterally with no wheezing or rhonchi noted. ABDOMEN: soft. Nontender on exam. non-distended, normoactive bowel sounds. No palpable organomegaly. MUSCULOSKELETAL: No joint swelling or deformity. EXTREMITIES: No cyanosis, clubbing, or pedal edema. NEUROLOGICAL: Gross neurological examination did not reveal any focal deficits. SKIN: No rashes. Assessment: Acute inferior myocardial wall infarction, status post cardiac catheterization and stenting to the RCA Continued ongoing alcohol abuse [place] continued nicotine dependence Hyponatremia Increased WBC, possibly reactive Hypertension GI prophylaxis DVT prophylaxis Full code Plan: Recommend continue telemetry monitoring and currently awaiting 2-D echo with cardiology following closely. Patient is status post cardiac catheterization with successful stenting to the RCA with 3 stents placed Patient is to continue on dual antiplatelet therapy along with beta ehsan and losartan Recommend to monitor vital signs closely Patient with low sodium recommend repeat labs and encourage oral intake Recommend to monitor electrolytes closely and replace per protocol Patient is currently in the ICU and awaiting a bed on the selective unit Encouraged alcohol and tobacco cessation with counseling provided. Risk factor modifications with lifestyle modifications and medical management with close outpatient follow-up with cardiology Possible discharge in the next 24-48 hours once cleared by cardiology The impression and plan of care has been dictated by Crystal Rodriguez, nurse practitioner as directed. Dr. Shreya MD I have performed a history and examination and MDM of this patient, discussed the same with the dictator, and agree with the dictator's assessment and plan as written ,documented as a scribe. Based on total visit time, I have performed more than 50% of the visit. Any additional findings or plans will be noted. Objective - Vital Signs Vital signs: Vital Signs Temp 98.0 F 07/20/22 04:00 Pulse 75 07/20/22 09:00 Resp 30 H 07/20/22 09:00 BP 131/80 07/20/22 09:00 Pulse Ox 95 07/20/22 09:00 FiO2 2 07/19/22 23:30 Intake & Output 07/19/22 07/20/22 07/20/22 18:59 06:59 18:59 Intake Total 2042 916 219 Output Total 750 3075 450 Balance 1292 -2159 -231 Weight 72.575 kg 67.5 kg Intake: IV 1450 903 219 Sodium Chloride 0.9% 1, 400 903 219 000 ml In Empty Bag 1 bag @ 1 ML/KG/HR 72.575 mls/ hr IV .[id number] [facility] Rx#: [id number] Intake, IV Titration 52 13 Amount Tirofiban 12.5MG-250Ml Ns 52 13 250 ml @ 0.15 MCG/KG/MIN 13.064 mls/hr IV .[id number] [facility] Rx#:[id number] Oral 540 Output: Urine 750 3075 450 Other: Voiding Method Urinal - Labs CBC & Chem 7: 07/20/22 06:27 07/20/22 06:27 Labs: Abnormal Lab Results - Last 24 Hours (Table) 07/19/22 07/19/22 07/19/22 Range/Units 14:30 14:30 14:30 WBC 14.5 H (3.8-10.6) k/uL Neutrophils # 12.6 H (1.3-7.7) k/uL APTT >200.0 H* (22.0-30.0) sec Sodium 128 L (137-145) mmol/L Chloride 96 L (98-107) mmol/L Carbon Dioxide 21 L (22-30) mmol/L BUN (9-20) mg/dL Creatinine 0.56 L (0.66-1.25) mg/dL Glucose 115 H (74-99) mg/dL POC Glucose (mg/dL) (70-110) mg/dL Calcium 8.2 L (8.4-10.2) mg/dL Troponin I (0.000-0.034) ng/mL HDL Cholesterol (40.00-60.00) mg/dL 07/19/22 07/19/22 07/19/22 Range/Units 14:30 15:15 15:34 WBC (3.8-10.6) k/uL Neutrophils # (1.3-7.7) k/uL APTT (22.0-30.0) sec Sodium (137-145) mmol/L Chloride (98-107) mmol/L Carbon Dioxide (22-30) mmol/L BUN (9-20) mg/dL Creatinine (0.66-1.25) mg/dL Glucose (74-99) mg/dL POC Glucose (mg/dL) 145 H (70-110) mg/dL Calcium (8.4-10.2) mg/dL Troponin I 0.141 H* 0.404 H* (0.000-0.034) ng/mL HDL Cholesterol (40.00-60.00) mg/dL 07/19/22 07/19/22 07/19/22 Range/Units 15:34 15:34 15:34 WBC 12.2 H (3.8-10.6) k/uL Neutrophils # 10.6 H (1.3-7.7) k/uL APTT 151.3 H* (22.0-30.0) sec Sodium (137-145) mmol/L Chloride (98-107) mmol/L Carbon Dioxide (22-30) mmol/L BUN (9-20) mg/dL Creatinine (0.66-1.25) mg/dL Glucose (74-99) mg/dL POC Glucose (mg/dL) (70-110) mg/dL Calcium (8.4-10.2) mg/dL Troponin I (0.000-0.034) ng/mL HDL Cholesterol 67.60 H (40.00-60.00) mg/dL 07/19/22 07/20/22 07/20/22 Range/Units 20:48 02:06 06:27 WBC (3.8-10.6) k/uL Neutrophils # (1.3-7.7) k/uL APTT (22.0-30.0) sec Sodium (137-145) mmol/L Chloride (98-107) mmol/L Carbon Dioxide (22-30) mmol/L BUN (9-20) mg/dL Creatinine (0.66-1.25) mg/dL Glucose (74-99) mg/dL POC Glucose (mg/dL) (70-110) mg/dL Calcium (8.4-10.2) mg/dL Troponin I 1.780 H* 1.700 H* 1.310 H* (0.000-0.034) ng/mL HDL Cholesterol (40.00-60.00) mg/dL 07/20/22 07/20/22 Range/Units 06:27 06:27 WBC 12.3 H (3.8-10.6) k/uL Neutrophils # 9.5 H (1.3-7.7) k/uL APTT (22.0-30.0) sec Sodium 130 L (137-145) mmol/L Chloride (98-107) mmol/L Carbon Dioxide (22-30) mmol/L BUN 5 L (9-20) mg/dL Creatinine 0.50 L (0.66-1.25) mg/dL Glucose (74-99) mg/dL POC Glucose (mg/dL) (70-110) mg/dL Calcium (8.4-10.2) mg/dL Troponin I (0.000-0.034) ng/mL HDL Cholesterol (40.00-60.00) mg/dL
[2022-07-20 20:38] VITALS: RESP 18
[2022-07-20] MEDS ORDERED: LOSARTAN 25 MG TAB PO SCH (21:00)
[2022-07-20] MEDS: METOPROLOL TARTRATE 50 MG TAB PO SCH (21:04)
[2022-07-20] MEDS: ATORVASTATIN 80 MG TAB PO SCH (21:05)
[2022-07-21] MEDS: THIAMINE 100 MG TAB PO SCH (06:48)
[2022-07-21] MEDS: TICAGRELOR 90 MG TAB PO SCH (08:24)
[2022-07-21] MEDS: ASPIRIN 81 MG PO SCH (08:24)
[2022-07-21] MEDS: METOPROLOL TARTRATE 50 MG TAB PO SCH (08:24)
[2022-07-21] MEDS: MULTIVITAMINS, THERA 1 EACH TAB PO SCH (08:25)
[2022-07-21 08:27] VITALS: BP 163/85; PULSE 63; TEMP 98
[2022-07-21] MEDS ORDERED: LOSARTAN 25 MG TAB PO SCH (09:00)
[2022-07-21] MEDS: NICOTINE 21MG/24HR PATCH TRANSDERM SCH (09:50)
--- NOTE | 2022-07-21 11:34 | P.PN ---
Subjective Progress Note Date: 07/21/22 The patient is a 72-year-old male with past medical history of hypertension, who presented to the hospital after experiencing an acute onset of feeling unwell. The patient states he felt generalized acute onset of malaise with nausea and lightheadedness. Initial EKG showed inferior wall ST elevation. He subsequently went to the warehouse lab[facility], where Dr. Melo found a heavily calcified RCA with total occlusion in the mid segment. 3 stents were placed. The patient was also found to have 30-40% in the diagonal branch of the LAD. Left circumflex was free of disease. Echocardiogram revealed LV function of 50% with basal inferior lateral hypokinesis The patient was interviewed and examined. He states he did well overnight. He continues to deny any chest pain or chest pressure. He has been up ambulating around the unit without any symptoms. GENERAL: Well-appearing, well-nourished and in no acute distress. NECK: Supple without JVD or thyromegaly. LUNGS: Breath sounds clear to auscultation bilaterally. Respiration equal and unlabored. No wheezes, rales or rhonchi. HEART: Regular rate and rhythm without murmurs, rubs or gallops. S1 and S2 heard. EXTREMITIES: Normal range of motion, no edema. No clubbing or cyanosis. Peripheral pulses intact. Right radial site is +2 pulse VITALS: Blood pressure 163/85, pulse 63, respiratory rate 18, SpO2 97% on room air, temp 98.0F TELEMETRY: Sinus rhythm overnight IMPRESSION: Inferior wall ST elevated myocardial infarction Status post stenting of the RCA Mild ischemic cardiomyopathy, EF 50% Current smoker History of hypertension PLAN: Increase losartan to 25 mg twice daily Continue beta ehsan The patient may be discharged from the cardiac standpoint Follow-up with Dr. Alba in 1 week I am dictating on behalf of Dr Paulie Alba's history/physical and assessment/plan. 1. Objective - Vital Signs Vital signs: Vital Signs Temp 98.0 F 07/21/22 08:27 Pulse 63 07/21/22 08:27 Resp 18 07/21/22 08:27 BP 163/85 07/21/22 08:27 Pulse Ox 97 07/21/22 08:27 FiO2 2 07/19/22 23:30 Intake & Output 07/20/22 07/21/22 07/21/22 18:59 06:59 18:59 Intake Total 1169 118 Output Total 1050 Balance 119 118 Weight 67.5 kg Intake: IV 219 Sodium Chloride 0.9% 1, 219 000 ml In Empty Bag 1 bag @ 1 ML/KG/HR 72.575 mls/ hr IV .[id number] [facility] Rx#: [id number] Intake, IV Titration 200 Amount Magnesium Sulfate-D5w Pmx 200 1 gm In Dextrose/Water 1 100ml.bag @ 100 mls/hr IVPB Q1H [facility] Rx#: [id number] Oral 750 118 Output: Urine 1050 Other: Voiding Method Urinal # Voids 1 2 - Labs CBC & Chem 7: 07/20/22 06:27 07/20/22 06:27
--- NOTE | 2022-07-21 23:09 | P.DS ---
Providers Date of admission: 07/19/22 12:23 Attending physician: Stuart Gill MD Consults: 07/19/22 12:21 Consult Physician Stat Consulting Provider: Paulie Alba Consult Reason/Comments: STEMI Do you want consulting provider notified?: Already Contacted 07/19/22 14:44 Consult Physician Routine Consulting Provider: [facility] Consult Reason/Comments: Post Interventional Patient Do you want consulting provider notified?: Already Contacted Primary care physician: Physician Nonstaff Hospital Course: Diagnosis Acute inferior myocardial wall infarction, status post cardiac catheterization and stenting to the RCA Continued ongoing alcohol abuse Continued nicotine dependence Hyponatremia Increased WBC, possibly reactive Hypertension Full Code Discharge Disposition Patient is stable for discharge home, has been cleared by cardiology. He is given scripts for new labs and discussed importance of medication adherence. Discussed alcohol and smoking cessation. Patient will follow up with his PCP Dr Rochelle Knowles, per patient arrangements are being made between cardiology and his PCP for patient to follow up with [facility] in [place]. Hospital Course This is a 72 year old male with medical history of chronic alcohol abuse and ongoing nicotine dependence, hypertension. He reports to emergency center by EMS with syncopal episode and became unresponsive. There was concern for STEMI and patient was subsequently brought to the cardiac cathode washer where he underwent stenting to the RCA x3. He was started on dual antiplatelet therapy with aspirin and brilenta, also lipitor, metoprolol, and losartan. Amlodipine has been discontinued. Echocardiogram completed showing an EF of 50% with inferior lateral hypokinesis, mild mitral regurgitation and mild tricuspid regurgitation. Patient was monitored for 2 nights and cleared by cardiology for discharge on 07/21/2022. He has reported no further episodes of chest pain, no shortness of breath. He denies cough. No dizziness or lightheadedness. Patient was found to have sodium level of 128, and repeat 130. He had troponin elevation. Cholesterol panel was completed showing cholesterol 178, LDL 99, HDL 67.60. 07/21/2022 Patient was cleared by cardiology and writing provider was notified by RN. Medication reconciliation was completed. Provider evaluated patient in room prior to 1100 to discuss medications, follow up and to give lab scripts for repeat sodium outpatient. Patient frustrated in "lack of communication" as he thought [facility] was completing discharge and also was setting up for outpatient cardiology. He had also refused repeat BMP for this morning. He does state he drinks what he wants when he wants and that is "freeman lite." Discussed risks of ongoing alcohol use and also risks of ongoing nicotine use. Medications were sent to [facility] and patient advised to wait for medications to be delivered prior to discharge to ensure he had them. Patient states that he uses RX scripts, he did not want to wait for medications. For this reason discharge order was not entered as this is a holiday weekend and unable to verify if patient had picked up medications from pharmacy. Discussed importance of continuing on dual antiplatelet therapy and risk for restenosis of stents placed. Patients lungs were clear, S1 S2 auscultated he is alert x 3 and ambulating without difficulty in room. He verbalized understanding of new medications, indications. Discussed the use of sublingual nitroglycerin as needed for acute chest pain and he verbalized understanding. States he has used before. Discussed low sodium, states this is chronic for him and he will follow up with his primary care. Total time taken in discharge planning greater than 35 minutes. Please see medication reconciliation for a list of current medication. Thank you for allowing us to participate in the care of this patient. The impression and plan of care has been dictated by Paige Smart, Nurse Practitioner as directed. Dr. Shreya MD I have performed a history and physical examination and medical decision making of this patient, discussed the same with the dictator, and agree with the dictators assessment and plan as written, documented as a scribe. Based on total visit time, I have performed more than 50% of this visit. Patient Condition at Discharge: Stable Plan - Discharge Summary Discharge Rx Participant: Yes New Discharge Prescriptions: New Aspirin 81 mg PO DAILY #30 tab Ticagrelor [Brilinta] 90 mg PO BID #60 tab Metoprolol Tartrate [Lopressor] 50 mg PO BID #60 tab Multivitamins, Thera [Multivitamin (formulary)] 1 each PO DAILY tab Nitroglycerin Sl Tabs [Nitrostat] 0.4 mg SUBLINGUAL Q5M PRN #20 tab PRN Reason: Chest Pain Thiamine [Vitamin B-1] 100 mg PO BID-W/MEALS #60 tab Losartan [Cozaar] 25 mg PO BID #60 tab Nicotine 21Mg/24Hr Patch [Habitrol] 1 patch TRANSDERM DAILY #14 patch Atorvastatin [Lipitor] 80 mg PO HS #30 tab Famotidine [Pepcid] 20 mg PO DAILY #30 tablet Discontinued amLODIPine 10 mg PO DAILY Discharge Medication List Aspirin 81 mg PO DAILY #30 tab 07/21/22 [Rx] Atorvastatin [Lipitor] 80 mg PO HS #30 tab 07/21/22 [Rx] Famotidine [Pepcid] 20 mg PO DAILY #30 tablet 07/21/22 [Rx] Losartan [Cozaar] 25 mg PO BID #60 tab 07/21/22 [Rx] Metoprolol Tartrate [Lopressor] 50 mg PO BID #60 tab 07/21/22 [Rx] Multivitamins, Thera [Multivitamin (formulary)] 1 each PO DAILY tab 07/21/22 [Rx] Nicotine 21Mg/24Hr Patch [Habitrol] 1 patch TRANSDERM DAILY #14 patch 07/21/22 [Rx] Nitroglycerin Sl Tabs [Nitrostat] 0.4 mg SUBLINGUAL Q5M PRN #20 tab 07/21/22 [Rx] Thiamine [Vitamin B-1] 100 mg PO BID-W/MEALS #60 tab 07/21/22 [Rx] Ticagrelor [Brilinta] 90 mg PO BID #60 tab 07/21/22 [Rx] Follow up Appointment(s)/Referral(s): Rochelle Knowles NP [Other] - 1-2 Days (Office is closed. Please call to schedule follow up. ) Rubén Melo MD [STAFF PHYSICIAN] - 1 Week (Office is closed. Please call to schedule follow up. ) None,Stated [REFERRING] - 1-2 days Ambulatory/Diagnostic Orders: Basic Metabolic Panel [LAB.AMB] Time Frame: 2 Days, Location: None Selected Patient Instructions/Handouts: Heart Attack (IP) Activity/Diet/Wound Care/Special Instructions: Brilinta will be $24.30 Free month coupon applied Discharge pending repeat sodium level Discharge Disposition: HOME SELF-CARE
== END 2022-07-21 11:50 | disposition home or self-care (01) | DRG 246 ==
LOC: EC 12:11 → 2SICU 12:23 → 3SCARD 07-20 18:43
PROVIDERS: ADMIT Internal Medicine; ATTEND Internal Medicine
PROC: 4A023N7 Measurement of Cardiac Sampling and Pressure, Left Heart, Percutaneous Approach (ICD-10-PCS; principal; 2022-07-19 20:00)
PROC: 027037Z Dilation of Coronary Artery, One Artery with Four or More Drug-eluting Intraluminal Devices, Percutaneous Approach (ICD-10-PCS; principal; 2022-07-19 20:00)
PROC: B2111ZZ Fluoroscopy of Multiple Coronary Arteries using Low Osmolar Contrast (ICD-10-PCS; principal; 2022-07-19 20:00)
DX: I21.19 ST elevation (STEMI) myocardial infarction involving other coronary artery of inferior wall (principal); E87.1 Hypo-osmolality and hyponatremia; I25.84 Coronary atherosclerosis due to calcified coronary lesion; I25.10 Atherosclerotic heart disease of native coronary artery without angina pectoris; I25.5 Ischemic cardiomyopathy; I08.1 Rheumatic disorders of both mitral and tricuspid valves; I10 Essential (primary) hypertension; F10.10 Alcohol abuse, uncomplicated; F17.210 Nicotine dependence, cigarettes, uncomplicated; Z71.6 Tobacco abuse counseling; Z82.49 Family history of ischemic heart disease and other diseases of the circulatory system
CPT/HCPCS: 80048; 80053; 80061; 83735; 84484; 85025; 85379; 85610; 85730; 93306; 93458; 99285